=== PATIENT | male | born 1965 | race African-American/Black ===

== ENCOUNTER 2021-10-17 14:14 | Emergency (ER) | payer SELFPAY ==
[2021-10-17] MEDS ORDERED: Ketorolac Tromethamine 30 MG/ML VIAL ONE (15:34)
== END 2021-10-17 15:50 | disposition home or self-care (01) ==
LOC: ERS 14:14
DX: U07.1 COVID-19 (principal)
CPT/HCPCS: 96372; 99284; J1885; U0003; U0005